=== PATIENT | male | born 1965 | race Caucasian/White ===

== ENCOUNTER 2018-07-12 17:31 | Emergency (ER) | payer OTHER ==
--- NOTE | ~2018-07-12 | EKG ---
[place], [place] ELECTROCARDIOGRAM REPORT NAME: CALLIE BOOTH UNIT #: [id number] ROOM: DOCTOR: EPIPHANY DRAFT REPORT BIRTHDATE: [birth year] [facility] Test Date: 2018-07-25 Test Time: 16:51:53 Pat Name: CALLIE BOOTH Department: Room: Gender: Lean Manager: : 1965 Requested By: JESSICA GOMEZ Order Number: [id number] Reading MD: Measurements Intervals [place] Rate: 75 P: 50 GA: 149 QRS: -16 QRSD: 83 T: -2 QT: 383 QTc: 428 Interpretive Statements Sinus rhythm RSR' in V1 or V2, probably normal variant Left ventricular hypertrophy No previous ECG available for comparison CM:EKGRPT:ELECTROCARDIOGRAM REPORT [id number] JESSICA GOMEZ [facility] DRAFT REPORT
[2018-07-12 17:51] LABS: BASO % 0.4 % (0.0-1.0); EOS % 0.1 % (1.0-4.0); HEMATOCRIT 41.8 % (42.0-52.0); HEMOGLOBIN 15.1 g/dl (14.0-18.0); LYMPH # 1.1 10*3/uL (1.3-4.4); LYMPH % 13.6 % (27.0-41.0); MEAN CELL VOLUME 91.7 fl (80.0-94.0); MEAN CORPUSCULAR HGB 33.1 pg (27.0-31.0); MEAN CORPUSCULAR HGB CONC 36.1 g/dl (33.0-37.0); MEAN PLATELET VOLUME 9.1 fl (9.6-12.3); MONO # 1.2 10*3/uL (0.1-1.0); MONO % 14.7 % (3.0-9.0); NEUT # 5.6 10*3/uL (2.3-7.9); NEUT % 70.9 % (47.0-73.0); PLATELET COUNT AUTOMATED 154 10*3/uL (130-400); RED BLOOD COUNT 4.56 10*6/uL (4.50-5.90); RED CELL DISTRI WIDTH 12.8 % (0-14.5); WHITE BLOOD COUNT 7.8 10*3/uL (4.8-10.8)
[2018-07-12 18:11] LABS: ALBUMIN 3.5 gm/dl (3.1-4.5); ALKALINE PHOSPHATASE 57 U/L (45-117); BUN 6 mg/dl (7-24); CHLORIDE 108 mmol/L (98-107); CREATININE 0.82 mg/dL (0.70-1.30); POTASSIUM 3.8 mmol/L (3.5-5.1); SGOT/AST 31 IU/L (3-35); SGPT/ALT 43 U/L (12-78); SODIUM 137 mmol/L (136-145); TOTAL PROTEIN 8.1 gm/dL (6.4-8.2)
[2018-07-12] MEDS ORDERED: CLARITIN10 MG PO (18:35)
[2018-07-12] MEDS ORDERED: PREDNISONE10 MG PO (18:35)
[2018-07-12] MEDS ORDERED: FLONASE ALLERG9.9 ML NAS (18:35)
== END 2018-07-12 18:52 | disposition home or self-care (01) ==
LOC: ED 17:31
PROVIDERS: Nurse Practitioner Family
DX: B34.9 Viral infection, unspecified (principal); R03.0 Elevated blood-pressure reading, without diagnosis of hypertension; F17.200 Nicotine dependence, unspecified, uncomplicated

== ENCOUNTER 2018-07-25 16:36 | Inpatient (IN) | payer OTHER ==
[~2018-07-25] VITALS: Ht 172.7 cm; Wt 74.4 kg
--- NOTE | ~2018-07-25 | PR ---
[place], [place] PROGRESS NOTE NAME: CALLIE BOOTH UNIT #: [id number] ROOM: 406 DOCTOR: YOANNA BYRNE MD BIRTHDATE: [birth year] DOS: SUBJECTIVE: The patient continues to have headaches, but overall seems to be helping, but the patient states it is too far apart. OBJECTIVE: VITAL SIGNS: Graphic trend shows a pressure 139/69, pulse of 66, respirations 20, temperature 98.6. LUNGS: Diminished breath sounds, few scattered rales. HEART: Regular. ABDOMEN: Obese, soft. EXTREMITIES: Without any edema. ASSESSMENT AND PLAN: 1. Bilateral pneumonia with consolidation, possible gram-negative. Await sputum cultures are not pending. Respiratory virus panel is not available yet. The patient is on antibiotics, which are being continued. Repeat chest x-ray will be ordered tomorrow to see whether there is any clearing of the pneumonia. 2. Benign hypertension, controlled with a low dose of Norvasc. 3. Headaches. Check CT of the head and change the pain medicine. YOANNA BYRNE MD CM:PNTRANS [id number] YOANNA BYRNE MD 07/28/18 0331 interface
--- NOTE | ~2018-07-25 | PR ---
[place], [place] PROGRESS NOTE NAME: CALLIE BOOTH UNIT #: [id number] ROOM: 406 DOCTOR: YOANNA BYRNE MD BIRTHDATE: [birth year] DOS: SUBJECTIVE: The patient is doing much better. He feels good and he is walking in the room without any new complaints. OBJECTIVE: VITAL SIGNS: Blood pressure is 144/87, pulse of 72, respirations 18, temperature 98.4. LUNGS: Clear. HEART: Regular. ABDOMEN: Soft. EXTREMITIES: Without any edema. LABORATORY DATA: Mycoplasma pneumoniae positive IgG at 275, IgM less than 770. ASSESSMENT AND PLAN: 1. Bilateral pneumonia with consolidation, most likely Gram-negative, blood and sputum have come back negative. Mycoplasma pneumoniae and Legionella antigen acute negative. 2. Elevated blood pressure with headaches, which is resolved. Blood pressures are much better controlled. The plan is to discharge the patient to home today and have a repeat chest x-ray as an outpatient. YOANNA BYRNE MD CM:PNTRANS 0 4 YOANNA BYRNE MD 07/29/18824 interface
--- NOTE | ~2018-07-25 | PR ---
[place], [place] PROGRESS NOTE NAME: CALLIE BOOTH UNIT #: [id number] ROOM: 406 DOCTOR: YOANNA BYRNE MD BIRTHDATE: [birth year] DOS: 07/28/2018 SUBJECTIVE: The patient's headaches coming and going, but overall better. His cough is better. Shortness of breath is improving. He has not had any fever, but he still feels poorly. OBJECTIVE: VITAL SIGNS: Blood pressure is 136/81, pulse of 70, respirations 20, temperature 98.1. LUNGS: Diminished breath sounds, very few rales heard today. HEART: Regular. ABDOMEN: Obese, soft. EXTREMITIES: Without any edema. LABORATORY DATA: White cell count is down to 8.4, hemoglobin 13.4, hematocrit 40.4, platelets 352. ESR was 70. Comprehensive was within normal limits. Blood cultures, no bacterial growth. Sputum culture is not available. Rapid flu is negative. Legionella and mycoplasma is not available yet. ASSESSMENT AND PLAN: 1. Bilateral pneumonia, on IV antibiotics. The patient's infection is slowly improving, clinically is much better. Chest x-ray is lagging behind. He has not had any more fever and the white cell count is normal, so we will continue the same antibiotics for a couple more days before discharge to home. 2. Benign hypertension, controlled. 3. Headaches, possibly migraine. We will discontinue the IV pain medicines. YOANNA BYRNE MD CM:PNTRANS [id number] YOANNA BYRNE MD 07/28/18 1350 interface
--- NOTE | ~2018-07-25 | DS ---
[place], [place] DISCHARGE SUMMARY NAME: CALLIE BOOTH UNIT #: [id number] ROOM: 406 DOCTOR: YOANNA BYRNE MD BIRTHDATE: [birth year] DOS: 07/29/2018 DIAGNOSES: 1. Bilateral pneumonia with consolidation, possible gram-negative. 2. IgG Mycoplasma pneumoniae positive. 3. Benign hypertension. HOSPITAL COURSE: This patient is 52 years old, not known to me, comes in with complaints of cough and shortness of breath for about 2 weeks' duration. Please refer to H and P for details. The patient was placed on IV antibiotics, breathing treatments, oxygen supplementation. CT of the chest done in the Emergency Room shows bilateral pneumonia with consolidation. Sputum cultures, blood cultures, legionella and antigen antibody and mycoplasma antibody were ordered and the results as above. Cultures have come back negative except for normal juhi. ESR is slightly elevated about 70. The patient did complain of headaches and diffuse muscle aches and pains, but this has resolved with Ultram. CT of the head was negative. The patient's chest x-ray has lag behind, but clinically the patient is improving. His white cell count is normal. He does not have any fever. So the plan is to discharge him to home today on p.o. antibiotics and Levaquin 750 mg daily was ordered along with Norvasc 2.5 mg daily. YOANNA BYRNE MD CM:DISCHARG [id number] YOANNA BYRNE MD 07/29/18 0823 interface
--- NOTE | ~2018-07-25 | WRIGHTHP ---
[place], [place] PATIENT HISTORY AND PHYSICAL EXAM NAME: CALLIE BOOTH UNIT #: [id number] ROOM: 406 DOCTOR: YOANNA BYRNE MD BIRTHDATE: [birth year] DOS: 07/25/2018 HISTORY OF PRESENT ILLNESS: This patient is 52 years old. He does not have any known medical history. He has been sick for about 2 weeks and had multiple visits to [place] urgent care as well as the Emergency Room at [facility], was last diagnosed with pneumonia, was placed on azithromycin and sent home. Continues to be pretty sick with cough and shortness of breath and fever. His brought to the Emergency Room and was diagnosed with pneumonia and was treated. She is getting better, but he was actually getting worse with continued fevers, so he came back to the Emergency Room yesterday. He has had some emesis, which is blood-tinged. Denies having any diarrhea, nausea or emesis. PAST MEDICAL HISTORY: None significant. MEDICATIONS: None. SOCIAL HISTORY: He does not smoke, does not use any alcohol. Lives at home with his . He does not have any children. He has 3 step-kids. FAMILY HISTORY: He does not have a family history of any major medical problems other than hypertension in his mother. PHYSICAL EXAMINATION: GENERAL: On examination, he works as a delivery truck drivervan cdl driver. He is awake and alert and oriented. VITAL SIGNS: Graphic trend shows a pressure of 149/86, pulse of 70, respirations 18 and temperature 98.4. LUNGS: Diminished breath sounds, scattered rales heard bilaterally. HEART: Regular. ABDOMEN: Obese, soft. EXTREMITIES: Without any edema. ASSESSMENT AND PLAN: 1. The patient who presents with cough, fever and shortness of breath. CT of the chest shows bilateral large pneumonia with consolidation. The patient has been placed on IV antibiotics, respiratory virus panel, mycoplasma, legionella has been ordered as well as slow IV hydration. 2. Headaches, possibly from the underlying infection. Toradol was given. 3. Elevated blood pressures noted, it could be causing his headaches. This could be a new onset, it also could be related to stress. I will place him on a low dose Norvasc. [place], [place] PATIENT HISTORY AND PHYSICAL EXAM NAME: CALLIE BOOTH UNIT #: [id number] ROOM: [facility] DOCTOR: YOANNA BYRNE MD BIRTHDATE: [birth year] YOANNA BYRNE MD [facility]IENT HISTORY AND PHYSICAL EXAMINATION 1014 YOANNA BYRNE MD 07/26/18 1014 interface
[~2018-07-25 16:36] MED LIST: CLARITIN10 MG PO; FLONASE ALLERG9.9 ML NAS; PREDNISONE10 MG PO
[2018-07-25 16:40] VITALS: BP 167/102
[2018-07-25 17:15] LABS: BASO % 0.4 % (0.0-1.0); EOS # 0.2 10*3/uL (0.0-0.4); EOS % 2.3 % (1.0-4.0); HEMATOCRIT 39.4 % (42.0-52.0); HEMOGLOBIN 13.9 g/dl (14.0-18.0); LYMPH # 2.7 10*3/uL (1.3-4.4); LYMPH % 34.6 % (27.0-41.0); MEAN CELL VOLUME 91.8 fl (80.0-94.0); MEAN CORPUSCULAR HGB 32.4 pg (27.0-31.0); MEAN CORPUSCULAR HGB CONC 35.3 g/dl (33.0-37.0); MEAN PLATELET VOLUME 8.7 fl (9.6-12.3); MONO # 0.8 10*3/uL (0.1-1.0); MONO % 9.7 % (3.0-9.0); NEUT # 4.1 10*3/uL (2.3-7.9); NEUT % 52.5 % (47.0-73.0); PLATELET COUNT AUTOMATED 309 10*3/uL (130-400); RED BLOOD COUNT 4.29 10*6/uL (4.50-5.90); RED CELL DISTRI WIDTH 12.7 % (0-14.5); WHITE BLOOD COUNT 7.9 10*3/uL (4.8-10.8)
[2018-07-25 17:32] LABS: ALBUMIN 2.9 gm/dl (3.1-4.5); ALKALINE PHOSPHATASE 57 U/L (45-117); BUN 8 mg/dl (7-24); CHLORIDE 104 mmol/L (98-107); CREATININE 0.72 mg/dL (0.70-1.30); POTASSIUM 3.6 mmol/L (3.5-5.1); SGOT/AST 25 IU/L (3-35); SGPT/ALT 33 U/L (12-78); SODIUM 137 mmol/L (136-145); TOTAL PROTEIN 7.7 gm/dL (6.4-8.2)
[2018-07-25 17:35] LABS: TROPONIN I < 0.015 ng/ml (<0.045)
[2018-07-25 21:00] VITALS: BP 131/61
[2018-07-26] VITALS: BP 149/86
[2018-07-26 06:00] LABS: BASO % 0.3 % (0.0-1.0); EOS # 0.2 10*3/uL (0.0-0.4); HEMATOCRIT 36.6 % (42.0-52.0); HEMOGLOBIN 12.2 g/dl (14.0-18.0); LYMPH # 2.3 10*3/uL (1.3-4.4); LYMPH % 29.4 % (27.0-41.0); MEAN CELL VOLUME 94.1 fl (80.0-94.0); MEAN CORPUSCULAR HGB 31.4 pg (27.0-31.0); MEAN CORPUSCULAR HGB CONC 33.3 g/dl (33.0-37.0); MEAN PLATELET VOLUME 8.8 fl (9.6-12.3); MONO # 0.8 10*3/uL (0.1-1.0); MONO % 10.3 % (3.0-9.0); NEUT # 4.4 10*3/uL (2.3-7.9); NEUT % 57.5 % (47.0-73.0); PLATELET COUNT AUTOMATED 285 10*3/uL (130-400); RED BLOOD COUNT 3.89 10*6/uL (4.50-5.90); RED CELL DISTRI WIDTH 12.6 % (0-14.5); WHITE BLOOD COUNT 7.7 10*3/uL (4.8-10.8)
[2018-07-26 12:00] VITALS: BP 120/80
[2018-07-26 16:00] VITALS: BP 139/84
[2018-07-26 20:00] VITALS: BP 133/80
[2018-07-27] VITALS: BP 139/69
[2018-07-27 12:00] VITALS: BP 161/90
[2018-07-27 16:00] VITALS: BP 148/90
[2018-07-27 20:00] VITALS: BP 141/86
[2018-07-28] VITALS: BP 142/88
[2018-07-28 06:21] LABS: BASO % 0.4 % (0.0-1.0); EOS # 0.1 10*3/uL (0.0-0.4); EOS % 0.9 % (1.0-4.0); HEMATOCRIT 40.4 % (42.0-52.0); HEMOGLOBIN 13.4 g/dl (14.0-18.0); LYMPH # 2.1 10*3/uL (1.3-4.4); LYMPH % 24.6 % (27.0-41.0); MEAN CELL VOLUME 94.4 fl (80.0-94.0); MEAN CORPUSCULAR HGB 31.3 pg (27.0-31.0); MEAN CORPUSCULAR HGB CONC 33.2 g/dl (33.0-37.0); MEAN PLATELET VOLUME 8.5 fl (9.6-12.3); MONO # 0.8 10*3/uL (0.1-1.0); MONO % 9.4 % (3.0-9.0); NEUT # 5.4 10*3/uL (2.3-7.9); NEUT % 64.3 % (47.0-73.0); PLATELET COUNT AUTOMATED 352 10*3/uL (130-400); RED BLOOD COUNT 4.28 10*6/uL (4.50-5.90); WHITE BLOOD COUNT 8.4 10*3/uL (4.8-10.8)
[2018-07-28 06:52] LABS: ALBUMIN 3.3 gm/dl (3.1-4.5); BUN 7 mg/dl (7-24); CHLORIDE 102 mmol/L (98-107); POTASSIUM 4.1 mmol/L (3.5-5.1); SODIUM 138 mmol/L (136-145)
[2018-07-28 06:55] LABS: ALKALINE PHOSPHATASE 59 U/L (45-117); CREATININE 0.77 mg/dL (0.70-1.30); SGOT/AST 26 IU/L (3-35); SGPT/ALT 31 U/L (12-78); TOTAL PROTEIN 8.6 gm/dL (6.4-8.2)
[2018-07-28 08:00] VITALS: BP 136/81
[2018-07-28 12:00] VITALS: BP 162/88
[2018-07-28 15:06] LABS: MYCOPLASMA PNEUMONIAE IGG 275 U/mL (0-99); MYCOPLASMA PNEUMONIAE IGM <770 U/mL (0-769)
[2018-07-28 16:00] VITALS: BP 134/82
[2018-07-28 20:00] VITALS: BP 129/66
[2018-07-29] VITALS: BP 144/87
[2018-07-29 08:00] VITALS: BP 150/80
[2018-07-29] MEDS ORDERED: LEVAQUIN750 M1 PO (08:01)
[2018-07-29] MEDS ORDERED: NORVASC2.5 MG PO (08:06)
[2018-07-29 09:11] LABS: ADENOVIRUS Negative (Negative); INFLUENZA A Negative (Negative); INFLUENZA B Negative (Negative); METAPNEUMOVIRUS Negative (Negative); PARAINFLUENZA 1 Negative (Negative); PARAINFLUENZA 2 Negative (Negative); PARAINFLUENZA 3 Negative (Negative); RHINOVIRUS Negative (Negative); RSV A Negative (Negative); RSV B Negative (Negative)
== END 2018-07-29 11:10 | disposition home or self-care (01) | DRG 179 ==
LOC: ED 16:36 → EDHOLD 19:20 → 4E 19:20
PROVIDERS: Nurse Practitioner Family; ADMIT Internal Medicine
DX: J15.6 Pneumonia due to other Gram-negative bacteria (principal); R51 Headache; I10 Essential (primary) hypertension; B96.0 Mycoplasma pneumoniae [M. pneumoniae] as the cause of diseases classified elsewhere

== ENCOUNTER → 2018-12-02 | Outpatient (CLI) | payer OTHER ==
[~2018-12-02] MED LIST changes: +LEVAQUIN750 M1 PO; +NORVASC2.5 MG PO
[2018-12-02 13:07] LABS: URINE AMPHETAMINES < 1000 (1000ng/ml); URINE BARBITURATES < 200 (200ng/ml); URINE BENZODIAZEPINES < 200 (200ng/ml); URINE CANNABINOIDS (THC) < 50 (50ng/ml); URINE COCAINE < 300 (300ng/ml); URINE METHADONE < 300 (300ng/ml); URINE OPIATES < 300 (300ng/ml); URINE PHENCYCLIDINE < 25 (25ng/ml)
== END | disposition home or self-care (01) ==
LOC: LAB 12:16
PROVIDERS: Internal Medicine Gastroenterology
DX: B18.2 Chronic viral hepatitis C (principal)

== ENCOUNTER → 2019-05-20 | Outpatient (CLI) | payer OTHER ==
[2019-05-20 12:22] LABS: ALBUMIN 3.6 gm/dl (3.1-4.5); BILIRUBIN, DIRECT 0.1 mg/dL (0.0-0.2); TOTAL PROTEIN 7.5 gm/dL (6.4-8.2)
[2019-05-23 10:06] LABS: HEPATITIS C QUANTITATION HCV Not Detected IU/mL (.)
== END | disposition home or self-care (01) ==
LOC: LAB 11:18
PROVIDERS: Nurse Practitioner Family
DX: B18.2 Chronic viral hepatitis C (principal)

== ENCOUNTER → 2020-03-01 | Outpatient (CLI) | payer OTHER | END | disposition home or self-care (01) | LOC: RAD 10:48 | PROVIDERS: ATTEND Internal Medicine | DX: M25.78 Osteophyte, vertebrae (principal); M54.5 Low back pain; M25.559 Pain in unspecified hip ==

== ENCOUNTER → 2020-06-14 | Outpatient (CLI) | payer OTHER | END | disposition home or self-care (01) | LOC: COVID19 13:41 | PROVIDERS: ATTEND Internal Medicine | DX: Z20.822 Contact with and (suspected) exposure to COVID-19 (principal) ==

== ENCOUNTER → 2020-08-08 | Outpatient (CLI) | payer OTHER | END | disposition home or self-care (01) | LOC: COVID19 10:03 | PROVIDERS: ATTEND Internal Medicine | DX: Z11.52 Encounter for screening for COVID-19 (principal) ==

== ENCOUNTER → 2021-05-09 | Outpatient (CLI) | payer OTHER | END | disposition home or self-care (01) | LOC: CARD 13:37 → US 15:00 | PROVIDERS: ATTEND Internal Medicine | DX: I65.23 Occlusion and stenosis of bilateral carotid arteries (principal); R06.02 Shortness of breath; I10 Essential (primary) hypertension; G64 Other disorders of peripheral nervous system; R42 Dizziness and giddiness ==

== ENCOUNTER 2021-08-01 22:36 | Emergency (ER) | payer OTHER ==
[~2021-08-01] VITALS: Ht 172.7 cm; Wt 77.1 kg
[2021-08-01 23:07] LABS: BASO # 0.1 10*3/uL (0.0-0.1); BASO % 0.6 % (0.0-1.0); EOS # 0.2 10*3/uL (0.0-0.4); EOS % 1.6 % (1.0-4.0); HEMATOCRIT 41.8 % (42.0-52.0); LYMPH # 2.3 10*3/uL (1.3-4.4); LYMPH % 23.2 % (27.0-41.0); MEAN CELL VOLUME 90.3 fl (80.0-94.0); MEAN CORPUSCULAR HGB 32.2 pg (27.0-31.0); MEAN CORPUSCULAR HGB CONC 35.6 g/dl (33.0-37.0); MEAN PLATELET VOLUME 8.7 fl (9.6-12.3); MONO # 0.7 10*3/uL (0.1-1.0); MONO % 7.1 % (3.0-9.0); NEUT # 6.7 10*3/uL (2.3-7.9); NEUT % 67.1 % (47.0-73.0); PLATELET COUNT AUTOMATED 267 10*3/uL (130-400); RED BLOOD COUNT 4.63 10*6/uL (4.50-5.90); RED CELL DISTRI WIDTH 12.8 % (0-14.5)
[2021-08-01 23:23] LABS: ALKALINE PHOSPHATASE 55 U/L (45-117); BUN 17 mg/dl (7-24); CHLORIDE 108 mmol/L (98-107); CREATININE 1.15 mg/dL (0.70-1.30); POTASSIUM 3.6 mmol/L (3.5-5.1); SGOT/AST 22 IU/L (3-35); SGPT/ALT 31 U/L (12-78); SODIUM 139 mmol/L (136-145); TOTAL PROTEIN 7.7 gm/dL (6.4-8.2)
[2021-08-02 01:05] LABS: BILIRUBIN Negative (Negative); BLOOD 2+ (Negative); CLARITY Clear (Clear); COLOR Yellow (Yellow); GLUCOSE Negative (Negative); KETONE Negative (Negative); LEUKO ESTERASE Negative (Negative); NITRITE Negative (Negative); PH 7.5 (4.5-8.0); SPECIFIC GRAVITY >= 1.030 (1.001-1.030); UROBILINOGEN 0.2 E.U./dl (0.0-1.0)
[2021-08-02 01:16] LABS: RBC 21-30 rbc/hpf (0-2); WBC 0-2 wbc/hpf (0-5)
[2021-08-02] MEDS ORDERED: FLOMAX0.4 MG PO (01:16)
[2021-08-02] MEDS ORDERED: PERCOCET 5-3251 EACH PO (01:16)
[2021-08-02] MEDS ORDERED: IBU800 M2 PO (01:16)
== END 2021-08-02 01:25 | disposition home or self-care (01) ==
LOC: ED 22:36
PROVIDERS: Emergency Medicine
DX: N13.2 Hydronephrosis with renal and ureteral calculous obstruction (principal); F17.200 Nicotine dependence, unspecified, uncomplicated

== ENCOUNTER → 2021-09-06 | Outpatient (CLI) | payer OTHER ==
[~2021-09-06] MED LIST changes: +FLOMAX0.4 MG PO; +IBU800 M2 PO; +PERCOCET 5-3251 EACH PO
== END | disposition home or self-care (01) ==
LOC: US 11:00
PROVIDERS: ATTEND Urology
DX: N20.0 Calculus of kidney (principal); N13.30 Unspecified hydronephrosis

== ENCOUNTER → 2021-09-13 | Outpatient (CLI) | payer OTHER ==
[2021-09-13 10:42] LABS: BASO # 0.1 10*3/uL (0.0-0.1); BASO % 0.9 % (0.0-1.0); EOS # 0.5 10*3/uL (0.0-0.4); EOS % 5.4 % (1.0-4.0); HEMATOCRIT 45.7 % (42.0-52.0); LYMPH # 2.9 10*3/uL (1.3-4.4); LYMPH % 32.5 % (27.0-41.0); MEAN CELL VOLUME 89.6 fl (80.0-94.0); MEAN CORPUSCULAR HGB 31.8 pg (27.0-31.0); MEAN CORPUSCULAR HGB CONC 35.4 g/dl (33.0-37.0); MEAN PLATELET VOLUME 8.7 fl (9.6-12.3); MONO # 0.8 10*3/uL (0.1-1.0); NEUT # 4.7 10*3/uL (2.3-7.9); PLATELET COUNT AUTOMATED 276 10*3/uL (130-400); RED CELL DISTRI WIDTH 12.6 % (0-14.5)
[2021-09-13 10:47] LABS: BILIRUBIN Negative (Negative); BLOOD Negative (Negative); CLARITY Clear (Clear); COLOR Yellow (Yellow); GLUCOSE Negative (Negative); KETONE Negative (Negative); LEUKO ESTERASE Negative (Negative); NITRITE Negative (Negative); UROBILINOGEN 0.2 E.U./dl (0.0-1.0)
[2021-09-13 11:02] LABS: MUCOUS 1+
[2021-09-13 11:14] LABS: THYROXINE (T4) TOTAL 9.9 ug/dl (4.5-12.1)
== END | disposition home or self-care (01) ==
LOC: LAB 10:11
PROVIDERS: ATTEND Urology
DX: N20.0 Calculus of kidney (principal); E83.50 Unspecified disorder of calcium metabolism; R31.9 Hematuria, unspecified; Z12.5 Encounter for screening for malignant neoplasm of prostate

== ENCOUNTER → 2021-09-18 | Outpatient (CLI) | payer OTHER | END | disposition home or self-care (01) | LOC: LAB 18:58 | PROVIDERS: Urology; ATTEND Emergency Medicine | DX: N20.0 Calculus of kidney (principal); E83.50 Unspecified disorder of calcium metabolism; R31.9 Hematuria, unspecified ==

== ENCOUNTER → 2021-11-07 | Outpatient (CLI) | payer OTHER | END | disposition home or self-care (01) | LOC: US 09:00 | PROVIDERS: ATTEND Urology | DX: N13.30 Unspecified hydronephrosis (principal); N20.0 Calculus of kidney; N32.89 Other specified disorders of bladder ==

== ENCOUNTER → 2022-04-13 | Outpatient (CLI) | payer OTHER | END | disposition home or self-care (01) | LOC: COVID19 09:00 | PROVIDERS: ATTEND Internal Medicine | DX: Z20.822 Contact with and (suspected) exposure to COVID-19 (principal) ==

== ENCOUNTER → 2022-04-24 | Outpatient (CLI) | payer OTHER | LOC: LAB 11:06 | PROVIDERS: ATTEND Internal Medicine | DX: Z13.0 Encounter for screening for diseases of the blood and blood-forming organs and certain disorders involving the immune mechanism (principal); Z13.1 Encounter for screening for diabetes mellitus; Z13.21 Encounter for screening for nutritional disorder; Z13.220 Encounter for screening for lipoid disorders; Z13.228 Encounter for screening for other metabolic disorders; Z13.6 Encounter for screening for cardiovascular disorders; Z13.89 Encounter for screening for other disorder; R53.81 Other malaise; R79.89 Other specified abnormal findings of blood chemistry; E55.9 Vitamin D deficiency, unspecified; D51.9 Vitamin B12 deficiency anemia, unspecified; E03.9 Hypothyroidism, unspecified; D52.9 Folate deficiency anemia, unspecified ==

== ENCOUNTER → 2022-05-21 | Outpatient (CLI) | payer OTHER | END | disposition home or self-care (01) | LOC: CT 05-16 11:00 → LAB 08:16 | PROVIDERS: ATTEND Urology | DX: Z13.0 Encounter for screening for diseases of the blood and blood-forming organs and certain disorders involving the immune mechanism (principal); Z13.1 Encounter for screening for diabetes mellitus; Z13.21 Encounter for screening for nutritional disorder; Z13.220 Encounter for screening for lipoid disorders; Z13.228 Encounter for screening for other metabolic disorders; Z13.6 Encounter for screening for cardiovascular disorders; N20.0 Calculus of kidney; R53.81 Other malaise; R79.89 Other specified abnormal findings of blood chemistry; E55.9 Vitamin D deficiency, unspecified; D51.9 Vitamin B12 deficiency anemia, unspecified; E03.9 Hypothyroidism, unspecified; D52.9 Folate deficiency anemia, unspecified ==

== ENCOUNTER 2023-06-22 11:00 | Emergency (ER) | payer OTHER ==
[~2023-06-22] VITALS: Ht 172.7 cm; Wt 74.8 kg
[2023-06-22 12:00] LABS: BASO # 0.1 10*3/uL (0.0-0.1); BASO % 0.8 % (0.0-1.0); EOS # 0.1 10*3/uL (0.0-0.4); HEMATOCRIT 40.4 % (42.0-52.0); LYMPH # 2.4 10*3/uL (1.3-4.4); LYMPH % 40.3 % (27.0-41.0); MEAN CELL VOLUME 93.7 fl (80.0-94.0); MEAN CORPUSCULAR HGB CONC 34.2 g/dl (33.0-37.0); MEAN PLATELET VOLUME 8.9 fl (9.6-12.3); MONO # 0.7 10*3/uL (0.1-1.0); MONO % 10.9 % (3.0-9.0); NEUT # 2.8 10*3/uL (2.3-7.9); NEUT % 45.8 % (47.0-73.0); PLATELET COUNT AUTOMATED 240 10*3/uL (130-400); RED BLOOD COUNT 4.31 10*6/uL (4.50-5.90); RED CELL DISTRI WIDTH 13.1 % (0-14.5)
[2023-06-22 12:12] LABS: ACT PARTIAL THROMBO TIME 25.4 SECONDS (20.0-32.1)
[2023-06-22 12:21] LABS: ALKALINE PHOSPHATASE 39 U/L (46-116); BUN 7 mg/dl (9-23); CHLORIDE 107 mmol/L (98-107); LIPASE 31 U/L (12-53); POTASSIUM 3.5 mmol/L (3.4-5.1); SGPT/ALT 31 U/L (5-49); TOTAL PROTEIN 6.9 gm/dL (6.0-8.0)
[2023-06-22 12:24] LABS: BILIRUBIN Negative (Negative); BLOOD Negative (Negative); CLARITY Clear (Clear); COLOR Yellow (Yellow); GLUCOSE Negative (Negative); KETONE Negative (Negative); LEUKO ESTERASE Negative (Negative); NITRITE Negative (Negative); PH 7.5 (4.5-8.0); UROBILINOGEN 0.2 E.U./dl (0.0-1.0)
[2023-06-22 12:52] LABS: BACTERIA TRACE; EPITHELIAL CELLS 0-2; RBC 0-2 rbc/hpf (0-2); WBC 0-2 wbc/hpf (0-5)
== END 2023-06-22 20:12 | disposition home or self-care (01) ==
LOC: ED 11:00
PROVIDERS: Nurse Practitioner Family
DX: R19.7 Diarrhea, unspecified (principal); R10.32 Left lower quadrant pain; Z87.442 Personal history of urinary calculi; Z79.899 Other long term (current) drug therapy; Z79.2 Long term (current) use of antibiotics

== ENCOUNTER → 2023-06-26 | Outpatient (CLI) | payer OTHER | END | disposition home or self-care (01) | LOC: LAB 07:06 | PROVIDERS: ATTEND Internal Medicine | DX: R19.7 Diarrhea, unspecified (principal) ==

== ENCOUNTER → 2023-10-14 | Outpatient (CLI) | payer OTHER ==
[2023-10-14 09:28] LABS: BASO # 0.1 10*3/uL (0.0-0.1); BASO % 0.8 % (0.0-1.0); EOS # 0.1 10*3/uL (0.0-0.4); EOS % 1.5 % (1.0-4.0); HEMATOCRIT 43.6 % (42.0-52.0); LYMPH # 2.7 10*3/uL (1.3-4.4); LYMPH % 33.6 % (27.0-41.0); MEAN CELL VOLUME 92.2 fl (80.0-94.0); MEAN CORPUSCULAR HGB 31.5 pg (27.0-31.0); MEAN CORPUSCULAR HGB CONC 34.2 g/dl (33.0-37.0); MEAN PLATELET VOLUME 8.5 fl (9.6-12.3); MONO # 0.6 10*3/uL (0.1-1.0); NEUT # 4.4 10*3/uL (2.3-7.9); PLATELET COUNT AUTOMATED 214 10*3/uL (130-400); RED BLOOD COUNT 4.73 10*6/uL (4.50-5.90); RED CELL DISTRI WIDTH 12.8 % (0-14.5); WHITE BLOOD COUNT 7.9 10*3/uL (4.8-10.8)
[2023-10-14 09:57] LABS: ALKALINE PHOSPHATASE 42 U/L (46-116); BUN 8 mg/dl (9-23); CHLORIDE 103 mmol/L (98-107); CHOLESTEROL 214 mg/dL (<200); FREE T4 1.04 ng/dl (0.89-1.76); LDL CHOLESTEROL 111 mg/dL (9-159); POTASSIUM 3.7 mmol/L (3.4-5.1); SGPT/ALT 36 U/L (5-49); TOTAL PROTEIN 7.5 gm/dL (6.0-8.0); TRIGLYCERIDES 102 mg/dl (<150)
[2023-10-14 09:58] LABS: VITAMIN D, 25-HYDROXY 23.8 ng/mL (30-100)
== END ==
LOC: LAB 01:10 → US 09:30
PROVIDERS: ATTEND Internal Medicine
DX: K42.9 Umbilical hernia without obstruction or gangrene (principal)

== ENCOUNTER → 2023-10-22 | Outpatient (CLI) | payer OTHER | END | disposition home or self-care (01) | LOC: CT 00:29 | PROVIDERS: ATTEND Internal Medicine | DX: K42.9 Umbilical hernia without obstruction or gangrene (principal); N20.0 Calculus of kidney; N28.89 Other specified disorders of kidney and ureter; R19.00 Intra-abdominal and pelvic swelling, mass and lump, unspecified site ==

== ENCOUNTER → 2024-06-19 | Outpatient (CLI) | payer OTHER | END | disposition home or self-care (01) | LOC: LAB 00:07 | PROVIDERS: ATTEND Internal Medicine | DX: R73.09 Other abnormal glucose (principal) ==

== ENCOUNTER → 2024-07-29 | Outpatient (CLI) | payer OTHER | END | disposition home or self-care (01) | LOC: US 01:59 | PROVIDERS: ATTEND Internal Medicine | DX: I70.203 Unspecified atherosclerosis of native arteries of extremities, bilateral legs (principal); M79.604 Pain in right leg; M79.605 Pain in left leg ==